=== PATIENT | female | born 2000 | race Caucasian/White ===

== ENCOUNTER 2023-06-22 09:29 | Emergency (ER) | payer OTHER ==
--- OUTSIDE RECORDS SUMMARY | 2023-06-22 09:47 | XMS REPORT | Continuity of Care Document ---
:2000 Author Organization [facility] t Address [address] [facility] [address] [place] [address] Care Team Providers Name Role Phone Estuardo Luna Primary Care Physician Olya Robles Attending Clinician Unavailable DEL TRAN Attending Clinician Unavailable ESTUARDO WINTER Attending Clinician Unavailable Estuardo Luna Attending Clinician [phone] DARSHANA MENEZES Attending Clinician Unavailable DARSHANA MENEZES Attending Clinician Unavailable Ultrasound, Ang-Mfm Attending Clinician Unavailable Darshana Menezes MD Attending Clinician Lab, Earl Attending Clinician Unavailable Gabriella Jacob RN Attending Clinician Unavailable Omar Parra RN Attending Clinician Unavailable 1, Pea-Kjm Us Room Attending Clinician Unavailable Kiki Randhawa MD Attending Clinician [phone] KIKI RANDHAWA Attending Clinician Unavailable Lab, Pea-Rmchp Attending Clinician Unavailable Jewell KENNEDY, Rosita [place] Attending Clinician ROSITA GARCIA Attending Clinician Unavailable Maverick Stoddard MD Attending Clinician Doctor Unassigned, Arpelar Attending Clinician Unavailable KNOW, DOES_NOT Attending Clinician Unavailable Imlance, Olya Neff Y Admitting Clinician Unavailable Payers Payer Name Policy Type Policy Number Effective Date Expiration Date Jc balderas [facility] [id number] 2022 00:00:00 Problems Condition Condition Condition Status Onset Resolution Last Treating Co mments Source Name Details Category Date Date Treatment Clinician Date Abnormal Abnormal Disease Active Overview: Un thanh maternal maternal 8-10 Formattin ity of glucose glucose 00:00: g of this [place] tolerance, tolerance, 00 note Me dical antepartum antepartum might be Branch different from the original. Passed 3hr gtt Short Short Disease Active Univers interval interval 4-05 ity of between between 00:00: [place] pregnancie pregnancie 00 Me dical s s Branch affecting affecting , , antepartum antepartum Multiparit Multiparit Disease Active U nivers y y 4-05 ity of 00:00: [place] 00 Medical Branch Supervisio Supervisio Disease Active U nivers n of n of 4-05 ity of high-risk [place] [facility] Allergies, Adverse Reactions, Alerts Allergy Allergy Status Severity Reaction(s) Onset Inactive Treating Comm ents Source Name Type Date Date Clinician BENADRYL DRUG Active Rash Univers COLD/FLU 4-05 ity of 00:00: [place] 00 [facility] Er Benadryl Propensi Active Rash Univer s Cold/Flu ty to 4-05 ity of adverse 00:00: [place] reaction 00 [facility] Branch diphenhy DA Active U SEIZURES [facility] dramine 6-28 [facility] [place] NO KNOWN Drug Active Univers ALLERGIE Class ity of S [facility] Social History Social Habit Start Date Stop Date Quantity Comments Source ASSERTION 2022-12-10 University of 00:00:00 [facility] Gender identity Universit y of [facility] Sexual orientation Univer sity [facility] [place] History of Social 2023-05-17 2023-05-17 Univers ity of function 00:00:00 00:00:00 [facility] Exposure to 2023-04-08 2023-04-18 Not sure [facility]-CoV-2 (event) 00:00:00 09:23:00 [facility] Tobacco use and 2023-01-25 2023-01-25 Smokeless Universit y of exposure 00:00:00 00:00:00 tobacco [facility] [place] Alcohol intake 2023-01-25 2023-01-25 Ex-drinker [facility] 00:00:00 00:00:00 (finding) [facility] Sex Assigned At [birth year] Universit y of 00:00:00 00:00:00 [facility] Smoking Status Start Date Stop Date Source Tobacco smoking consumption Univ [facility] Branch Never smoked tobacco [facility] Medications Ordered Filled Start Stop Current Ordering Indication Dosage Frequency Signature Comments Components Source Medication Medication Date Date Medication? Clinician (SIG) Name Name Yes [id number] 1{tbl} Take 1 U nivers multivitami 4-05 tablet by ity of n ( [place] 00 the Medical tablet morning. [place] Yes [id number] 1{tbl} Take 1 U nivers multivitami 4-05 tablet by ity of n ( [place] 00 the Medical tablet morning. [place] Yes [id number] 1{tbl} Take 1 U nivers multivitami 4-05 tablet by ity of n ( [place] 00 the Medical tablet morning. [place] Yes [id number] 1{tbl} Take 1 U nivers multivitami 4-05 tablet by ity of n ( [place] 00 the Medical tablet morning. [place] Yes [id number] 1{tbl} Take 1 U nivers multivitami 4-05 tablet by ity of n ( [place] 00 the Medical tablet morning. [place] Yes [id number] 1{tbl} Take 1 U nivers multivitami 4-05 tablet by ity of n ( [place] 00 the Medical tablet morning. [place] Yes [id number] 1{tbl} Take 1 U nivers multivitami 4-05 tablet by ity of n ( [place] 00 the Medical tablet morning. [place] Yes [id number] 1{tbl} Take 1 U nivers multivitami 4-05 tablet by ity of n ( [place] 00 the Medical tablet morning. [place] Yes [id number] 1{tbl} Take 1 U nivers multivitami 4-05 tablet by ity of n ( [place] 00 the Medical tablet morning. [place] Yes [id number] 1{tbl} Take 1 U nivers multivitami 4-05 tablet by ity of n ( [place] 00 the Medical tablet morning. [place] Yes [id number] 1{tbl} Take 1 U nivers multivitami 4-05 tablet by ity of n ( [place] 00 the Medical tablet morning. [place] Yes [id number] 1{tbl} Take 1 U nivers multivitami 4-05 tablet by ity of n ( [place] 00 the Medical tablet morning. [place] Yes [id number] 1{tbl} Take 1 U nivers multivitami 4-05 tablet by ity of n ( [place] 00 the Medical tablet morning. [place] Yes [id number] 1{tbl} Take 1 U nivers multivitami 4-05 tablet by ity of n ( [place] 00 the Medical tablet morning. [place] Yes [id number] 1{tbl} Take 1 U nivers multivitami 4-05 tablet by ity of n ( [place] 00 the Medical tablet morning. [place] Yes [id number] 1{tbl} Take 1 U nivers multivitami 4-05 tablet by ity of n ( [place]IT[place] 00 the Medical tablet morning. Branch Yes [id number] 1{tbl} Take 1 U nivers multivitami 4-05 tablet by ity of n ( [place] 00 the Medical tablet morning. Branch Yes [id number] 1{tbl} Take 1 U nivers multivitami 4-05 tablet by ity of n ( [place] 00 the Medical tablet morning. Branch Yes [id number] 1{tbl} Take 1 U nivers multivitami 4-05 tablet by ity of n ( [place] 00 the Medical tablet morning. [place] Yes [id number] 1{tbl} Take 1 U nivers multivitami 4-05 tablet by ity of n ( [place] 00 the Medical tablet morning. [place] Yes [id number] 1{tbl} Take 1 U nivers multivitami 4-05 tablet by ity of n ( [place] 00 the Medical tablet morning. [place] Yes [id number] 1{tbl} Take 1 U nivers multivitami 4-05 tablet by ity of n ( [place] 00 the Medical tablet morning. [place] Yes [id number] 1{tbl} Take 1 U nivers multivitami 4-05 tablet by ity of n ( [place] 00 the Medical tablet morning. Branch Yes [id number] 1{tbl} Take 1 U nivers multivitami 4-05 tablet by ity of n ( [place] 00 the Medical tablet morning. [place] Yes [id number] 1{tbl} Take 1 U nivers multivitami 4-05 tablet by ity of n ( [place] 00 the Medical tablet morning. [place] Yes [id number] 1{tbl} Take 1 U nivers multivitami 4-05 tablet by ity of n ( [place] 00 the Medical tablet morning. Branch Immunizations Ordered Filled Immunization Date Status Comments Sour e Immunization Name Name TDAP 2023-06-12 Completed University 00:00:00 [place] [facility] TDAP 2023-06-12 Completed University 00:00:00 [facility] TDAP 2023-06-12 Completed University 00:00:00 [facility] Vital Signs Vital Name Observation Time Observation Value Comments Source Systolic blood 2023-06-12 18:22:00 127 mm[Hg] Univer sity of pressure [facility] Branch Diastolic blood 2023-06-12 18:22:00 78 mm[Hg] Unive rsity of pressure [facility] Branch Heart rate 2023-06-12 18:22:00 98 /min Universi ty of [facility] Body temperature 2023-06-12 18:22:00 36.33 Tamika Univ ersity of [facility] Branch Respiratory rate 2023-06-12 18:22:00 17 /min Univ ersity of [facility] Body height 2023-06-12 18:22:00 167.6 cm Universi ty of [place] [facility] Body weight 2023-06-12 18:22:00 90.901 kg Universi ty [facility] [place] [facility] BMI 2023-06-12 18:22:00 32.35 kg/m2 Universi ty [facility] [place] [facility] Systolic blood 2023-05-31 19:54:00 119 mm[Hg] Univer sity of pressure [facility] Diastolic blood 2023-05-31 19:54:00 73 mm[Hg] Unive rsity of pressure [facility] Branch Heart rate 2023-05-31 19:54:00 90 /min Universi ty of [facility] Body temperature 2023-05-31 19:54:00 36.56 Tamika Univ ersity of [facility] Respiratory rate 2023-05-31 19:54:00 20 /min Univ ersity of [facility] Body height 2023-05-31 19:54:00 167.6 cm Universi ty of [place] [facility] Body weight 2023-05-31 19:54:00 89.54 kg Universi ty [facility] [place] [facility] BMI 2023-05-31 19:54:00 31.86 kg/m2 Universi ty of [facility] Systolic blood 2023-05-17 20:15:00 119 mm[Hg] Univer sity of pressure [place] [facility] Diastolic blood 2023-05-17 20:15:00 74 mm[Hg] Unive rsity of pressure [place] [facility] Heart rate 2023-05-17 20:15:00 95 /min Universi ty of [place] [facility] Body temperature 2023-05-17 20:15:00 36.17 Tamika Univ ersity of [place] [facility] Respiratory rate 2023-05-17 20:15:00 16 /min Univ ersity of [place] [facility] Body height 2023-05-17 20:15:00 167.6 cm Universi ty [facility] [place] [facility] Body weight 2023-05-17 20:15:00 88.587 kg Universi ty [facility] [place] [facility] BMI 2023-05-17 20:15:00 31.52 kg/m2 [facility]i ty [facility] [place] [facility] Systolic blood 2023-04-19 17:46:00 116 mm[Hg] Univer sity of pressure [place] [facility] Diastolic blood 2023-04-19 17:46:00 72 mm[Hg] Unive rsity of pressure [place] [facility] Heart rate 2023-04-19 17:46:00 106 /min Universi ty of [place] [facility] Body temperature 2023-04-19 17:46:00 36.17 Tamika Univ ersity of [place] [facility] Respiratory rate 2023-04-19 17:46:00 18 /min Univ ersity of [place] [facility] Body height 2023-04-19 17:46:00 167.6 cm Universi ty [facility] [place] [facility] Body weight 2023-04-19 17:46:00 83.19 kg [facility]i ty [facility] [place] [facility] BMI 2023-04-19 17:46:00 29.60 kg/m2 [facility]i ty [facility] [place] [facility] Systolic blood 2023-03-22 17:51:00 122 mm[Hg] Univer sity of pressure [place] [facility] Diastolic blood 2023-03-22 17:51:00 84 mm[Hg] Unive rsity of pressure [place] [facility] Heart rate 2023-03-22 17:51:00 86 /min Universi ty of [place] [facility] Body weight 2023-03-22 17:50:00 81.829 kg [facility]i ty [facility] [place] [facility] BMI 2023-03-22 17:50:00 29.12 kg/m2 [facility] [place] [facility] Body temperature 2023-03-22 17:50:00 35.78 Tamika Univ ersity of [place] [facility] Respiratory rate 2023-03-22 17:50:00 18 /min Univ ersity of [place] [facility] Body height 2023-03-22 17:50:00 167.6 cm Universi ty [facility] [place] [facility] Systolic blood 2023-02-22 19:57:00 130 mm[Hg] Univer sity of pressure [place] [facility] Diastolic blood 2023-02-22 19:57:00 84 mm[Hg] Unive rsity of pressure [place] [facility] Heart rate 2023-02-22 19:57:00 80 /min Universi ty of [place] [facility] Body temperature 2023-02-22 19:57:00 36.11 Tamika Univ ersity of [place] [facility] Respiratory rate 2023-02-22 19:57:00 18 /min Univ ersity of [place] [facility] Body height 2023-02-22 19:57:00 167.6 cm Universi ty [facility] [place] [facility] Body weight 2023-02-22 19:57:00 79.969 kg [facility]i ty [facility] [place] [facility] BMI 2023-02-22 19:57:00 28.46 kg/m2 [facility] [place] [facility] Systolic blood 2023-01-25 13:51:00 116 mm[Hg] Univer sity of pressure [place] [facility] Diastolic blood 2023-01-25 13:51:00 79 mm[Hg] Unive rsity of pressure [place] [facility] Heart rate 2023-01-25 13:51:00 86 /min Universi ty [facility] [place] [facility] Body temperature 2023-01-25 13:51:00 36.17 Tamika Univ ersity of [place] [facility] Respiratory rate 2023-01-25 13:51:00 18 /min Univ ersity of [place] [facility] Body height 2023-01-25 13:51:00 167.6 cm [facility] [place] [facility] Body weight 2023-01-25 13:51:00 79.833 kg [facility] [place] [facility] BMI 2023-01-25 13:51:00 28.41 kg/m2 [facility] [place] [facility] Procedures Procedure Date / Time Performed Performing Clinician Liv e SECOND AND THIRD 2023-06-13 20:54:00 Estuardo Winter [facility] TRIMESTER ULTRASOUND Medical [facility] nc TDAP VACCINE, >11 YRS, 2023-06-12 18:24:45 Estuardo Winter [facility] POCT URINALYSIS 2023-06-12 00:00:00 Estuardo Winter [facility] POCT URINALYSIS 2023-05-17 00:00:00 Estuardo Winter [facility] POCT URINALYSIS 2023-04-19 17:50:00 Estuardo Winter [facility] POCT URINALYSIS 2023-03-22 17:53:00 Estuardo Winter [facility] POCT URINALYSIS 2023-02-22 19:58:00 Estuardo Winter [facility] FIRST TRIMESTER 2023-02-20 15:02:00 Estuardo Winter [facility] POCT URINALYSIS W/O 2023-01-25 13:41:00 [facility]RAV[facility] POCT TEST 2023-01-25 13:40:00 Estuardo Winter [facility] ASSIGNMENT OF BENEFITS 2023-01-25 13:14:41 Doctor Unassigned, No [facility] hospital [id number] 2022-04-20 00:00:00 [facility] [id number] 2022-04-20 00:00:00 [facility] [id number] 2022-04-20 00:00:00 [facility] Encounters Start End Encounter Admission Attending Care Care Encounter Source Date/Time Date/Time Type Type Clinicians Facility Department ID 2022-05-01 Inpatient EL MargaretOlya [facility] LD [id number] [facility] 13:52:00 48 [facility] [place] [facility] 2022-04-20 Inpatient EM Margaret Olya NATANAEL OBPP [id number] [facility] 06:12:00 [id number] [facility] 2023-06-27 2023-06-27 Outpatient R MAGGY [facility] [id number] Univers 15:00:00 15:00:00 ESTUARDO vail [facility] 2023-06-14 2023-06-14 [facility] 1.2.840.114 [id number] Univers 00:00:00 00:00:00 Estuardo Casandra HYBRID CAR MECHANIC 350.1.13.10 ity of REGIONAL 4.2.7.2.686 Boogie as MATERNAL [id number] [facility] ical & CHILD [address] [place] [address] 2023-06-13 2023-06-13 Outpatient P DARSHANA MENEZES [facility] [id number] Univers 15:30:00 15:58:39 DARSHANA MENEZES [facility] [place] 2023-06-13 2023-06-13 Insurance Sales Professional [facility] 1.2 .840.114 [id number] Univers 15:30:00 15:58:39 Visit Darshana Menezes HYBRID CAR MECHANIC 350.1.13.10 ity of REGIONAL 4.2.7.2.686 Boogie as MATERNAL [id number] [facility] & CHILD [address] [facility] 2023-06-12 2023-06-12 [facility] [id number] Univers 13:00:00 13:45:29 ESTUARDO stephaniesharyn vinayak skylar [facility] 2023-06-12 2023-06-12 [facility] [id number] Univers 13:00:00 13:45:29 Estuardo C HYBRID CAR MECHANIC 350.1.13.10 ity of Visit REGIONAL 4.2.7.2.686 Boogie as MATERNAL [id number] [facility] & CHILD [address] [place] [address] 2023-06-09 2023-06-09 Outpatient R MAGGY [facility] [id number] Univers 08:30:00 08:56:32 ESTUARDO ity o f [facility] 2023-06-09 2023-06-09 Insurance Sales Professional [facility] 1.2.840. [id number] Univers 08:30:00 08:56:32 Visit AkinsiJosé Miguel vegasEstuardo C HYBRID CAR MECHANIC 350.1.13. 10 ity of REGIONAL 4.2.7.2.686 Boogie as MATERNAL [id number] [facility] & [address] 2023-06-01 2023-06-01 Telephone [facility] 1.2.840.114 [id number] Univers 00:00:00 00:00:00 Estuardo C HYBRID CAR MECHANIC 350.1.13.10 ity of REGIONAL 4.2.7.2.686 Boogie as MATERNAL [id number] [facility] & [address] 2023-05-31 2023-05-31 [facility] [id number] Univers 15:00:00 15:34:10 ESTUARDO ity o f [facility] 2023-05-31 2023-05-31 Routine [facility] 1.2.106.514 [id number] Univers 15:00:00 15:34:10 Estuardo C HYBRID CAR MECHANIC 350.1.13.10 ity of Visit [facility] 4.2.7.2.686 Boogie as MATERNAL [id number] [address] 2023-05-17 2023-05-17 [facility] [id number] Univers 15:00:00 15:32:30 ESTUARDO ity o f [facility] 2023-05-17 2023-05-17 Routine [facility] [id number] Univers 15:00:00 15:32:30 Estuardo C HYBRID CAR MECHANIC 350.1.13.10 ity of Visit REGIONAL 4.2.7.2.686 Boogie as MATERNAL [id number] [address] 2023-05-16 2023-05-16 Gabriella Diop 1.2.840.114 [id number] Univers 00:00:00 00:00:00 Triage MINI 350.1.13.10 it y of HOSPITAL 4.2.7.2.686 Boogie as [id number] [address] 2023-04-20 2023-04-20 Nurse DEL Parra 1.2.840.114 [id number] Univers 00:00:00 00:00:00 Triage Omar MORSE 350.1.13.10 it y of [facility] 4.2.7.2.686 Boogie as [id number] [address] 2023-04-19 2023-04-19 Routine [facility] 1.2.509.157 [id number] Univers 13:15:00 13:15:00 Estuardo C HYBRID CAR MECHANIC 350.1.13.10 ity of Visit REGIONAL 4.2.7.2.686 Boogie as MATERNAL [id number] [facility] & CHILD [address] [place] [address] 2023-04-19 2023-04-19 Outpatient [facility] [id number] Univers 13:15:00 13:09:57 ESTUARDO vail [facility] 2023-04-13 2023-04-13 Abstract [facility] 1.2.840.114 [id number] Univers 00:00:00 00:00:00 Estuardo C HYBRID CAR MECHANIC 350.1.13.10 ity of REGIONAL 4.2.7.2.686 Boogie as MATERNAL [id number] [facility] & CHILD [address] [place] [address] 2023-04-03 2023-04-03 Insurance Sales Professional 1, [facility] Room [facility] 1.2. 840.114 [id number] Univers 13:00:00 14:00:00 Visit Kiki Randhawa HYBRID CAR MECHANIC 350.1. 13.10 ity of REGIONAL 4.2.7.2.686 Boogie as MATERNAL [id number] Med ical & CHILD [address] [place] [address] 2023-04-03 2023-04-03 Outpatient P MARIA LUISA [facility] [id number] Univers 13:00:00 13:00:00 REMA it y of KIKI Greene [facility] 2023-03-22 2023-03-22 [facility] [id number] Univers 12:45:00 13:24:31 ESTUARDO vail [facility] 2023-03-22 2023-03-22 Routine Akinsipe, [facility] [id number] Univers 12:45:00 13:24:31 Estuardo C HYBRID CAR MECHANIC 350.1.13.10 ity of Visit REGIONAL 4.2.7.2.686 Boogie as MATERNAL [id number] [facility] & CHILD [address] [place] [address] 2023-02-22 2023-02-22 Outpatient R KRISTINPE, [facility] [id number] [facility] 14:30:00 15:55:21 ESTUARDO massey vinayak vail [facility] 2023-02-22 2023-02-22 Routine [facility] [id number] [id number] [facility] 14:30:00 14:45:00 Estuardo C HYBRID CAR MECHANIC 350.1.13.10 ity of Visit REGIONAL 4.2.7.2.686 Boogie as MATERNAL [id number] [facility] & [address] 2023-02-21 2023-02-21 Abstract Akinscionhealth, [facility] 1.2.840.114 [id number] Univers 00:00:00 00:00:00 Estuardo C HYBRID CAR MECHANIC 350.1.13.10 ity of REGIONAL 4.2.7.2.686 Boogie as MATERNAL [id number] [facility] & [address] 2023-02-20 2023-02-20 Insurance Sales Professional [facility], [facility] 1.2.840. 114 [id number] Univers 10:00:00 10:00:00 Visit Rosita Garcia HYBRID CAR MECHANIC 350.1.13.10 ity of REGIONAL 4.2.7.2.686 Boogie as MATERNAL [id number] [facility] & CHILD [address] [place] [address] 2023-02-20 2023-02-20 Outpatient Betina GARCIA [facility] [id number] Univers 10:00:00 09:48:19 ROSITA licea [facility] 2023-02-20 2023-02-20 Insurance Sales Professional 1, [facility] 1.2. 840.114 [id number] Univers 09:15:00 09:48:11 Visit RichiMaverick HYBRID CAR MECHANIC 350.1.13.10 ity of REGIONAL 4.2.7.2.686 Boogie as MATERNAL [id number] [facility] & CHILD [address] [facility] 2023-01-25 2023-01-25 Initial [facility] [id number] [id number] Univers 08:30:00 09:41:28 Estuardo Guajardo HYBRID CAR MECHANIC 350.1.13.10 ity of Visit [facility] 4.2.7.2.686 Boogie as MATERNAL [id number] [facility] & CHILD [address] [facility] 2023-01-25 2023-01-25 [facility] [id number] Univers 08:30:00 09:41:28 ESTUARDO licea f [facility] 2023-01-25 2023-01-25 Orders Doctor DEL 1.2.840.114 [id number] Univers 00:00:00 00:00:00 Only Unassigned, MINI 350.1.13.10 ity of Arpelar [facility] 4.2.7.2.686 Boogie as [id number] [address] 2022-06-15 2022-06-15 Outpatient KNOWJACKIE [facility] [id number] [facility] 13:54:00 13:54:00 DOES_NOT [facility] 2022-06-03 2022-06-03 Outpatient EL ImlanceOlya RADI [id number] [facility] 15:13:00 15:13:00 [facility] [place] 2022-04-20 2022-04-22 Inpatient EM ImlanceOlya OBPP [id number] [facility] 06:12:00 02:24:00 54 [facility] [place] 2022-04-19 2022-04-19 Emergency EM ImlanceOlya JACEK [id number] [facility] 19:27:00 21:27:00 00 [facility] Results Test Description Test Time Test Comments Results Result Comments Source POCT URINALYSIS W SPECIFIC GRAVITY 2023-06-12 18:25:00 Test Item Value Reference Range Interpretation Comme nts POCT U SP GRAV (test code = 3255) . 1.005-1.025 POCT PH U (test code = 3254) . 5-8 POCT U LEUK EST (test code = 3263) . Negative - Negative POCT U NIT (test code = 3262) . Negative - Negative POCT U PROT (test code = 3259) trace Negative - Negative POCT U GLU (test code = 3256) negative Negative - Negative POCT U KETONE (test code = 3258) . Negative - Negative POCT U UROBILI (test code = 3260) . 0.2-1 POCT U BILI (test code = 3261) . Negative - Negative POCT U BLD (test code = 3257) . Negative - Negative POCT U COLOR (test code = 3266) . POCT U APPEAR (test code = 3267) . [facility] URINALYSIS W SPECIFIC [id number] 20:18:00 Test Item Value Reference Range Interpretation Comments POCT U SP GRAV (test code = . 1.005-1.025 3255) POCT PH U (test code = 3254) . 5-8 POCT U LEUK EST (test code = . Negative - Negative 3263) POCT U NIT (test code = 3262) . Negative - Negative POCT U PROT (test code = 3259) trace Negative - Negative POCT U GLU (test code = 3256) negative Negative - Negative POCT U KETONE (test code = 3258) . Negative - Negative POCT U UROBILI (test code = . 0.2-1 3260) POCT U BILI (test code = 3261) . Negative - Negative POCT U BLD (test code = 3257) . Negative - Negative POCT U COLOR (test code = 3266) . POCT U APPEAR (test code = 3267) . [facility] URINALYSIS W SPECIFIC [id number] 20:18:00 Test Item Value Reference Range Interpretation Comments POCT U SP GRAV (test code = . 1.005-1.025 3255) POCT PH U (test code = 3254) . 5-8 POCT U LEUK EST (test code = . Negative - Negative 3263) POCT U NIT (test code = 3262) . Negative - Negative POCT U PROT (test code = 3259) trace Negative - Negative POCT U GLU (test code = 3256) negative Negative - Negative POCT U KETONE (test code = 3258) . Negative - Negative POCT U UROBILI (test code = . 0.2-1 3260) POCT U BILI (test code = 3261) . Negative - Negative POCT U BLD (test code = 3257) . Negative - Negative POCT U COLOR (test code = 3266) . POCT U APPEAR (test code = 3267) . [facility] URINALYSIS W SPECIFIC [id number] 17:50:00 Test Item Value Reference Range Interpretation Comments POCT U SP GRAV (test code = 3255) . 1.005-1.025 POCT PH U (test code = 3254) . 5-8 POCT U LEUK EST (test code = 3263) . Negative - Negative POCT U NIT (test code = 3262) . Negative - Negative POCT U PROT (test code = 3259) TRACE Negative - Negative POCT U GLU (test code = 3256) NEG Negative - Negative POCT U KETONE (test code = 3258) . Negative - Negative POCT U UROBILI (test code = 3260) . 0.2-1 POCT U BILI (test code = 3261) . Negative - Negative POCT U BLD (test code = 3257) . Negative - Negative POCT U COLOR (test code = 3266) . POCT U APPEAR (test code = 3267) .. [facility] URINALYSIS W SPECIFIC [id number] 17:54:00 Test Item Value Reference Range Interpretation Comments POCT U SP GRAV (test code = 3255) . 1.005-1.025 POCT PH U (test code = 3254) . 5-8 POCT U LEUK EST (test code = 3263) . Negative - Negative POCT U NIT (test code = 3262) . Negative - Negative POCT U PROT (test code = 3259) TRACE Negative - Negative POCT U GLU (test code = 3256) NEG Negative - Negative POCT U KETONE (test code = 3258) . Negative - Negative POCT U UROBILI (test code = 3260) . 0.2-1 POCT U BILI (test code = 3261) . Negative - Negative POCT U BLD (test code = 3257) . Negative - Negative POCT U COLOR (test code = 3266) . POCT U APPEAR (test code = 3267) . [facility] URINALYSIS W SPECIFIC [id number] 19:58:00 Test Item Value Reference Range Interpretation Comments POCT U SP GRAV (test code = 3255) . 1.005-1.025 POCT PH U (test code = 3254) . 5-8 POCT U LEUK EST (test code = 3263) . Negative - Negative POCT U NIT (test code = 3262) . Negative - Negative POCT U PROT (test code = 3259) trace Negative - Negative POCT U GLU (test code = 3256) neg Negative - Negative POCT U KETONE (test code = 3258) . Negative - Negative POCT U UROBILI (test code = 3260) . 0.2-1 POCT U BILI (test code = 3261) . Negative - Negative POCT U BLD (test code = 3257) . Negative - Negative POCT U COLOR (test code = 3266) . POCT U APPEAR (test code = 3267) . [facility] URINALYSIS W/O SPECIFIC [id number] 13:44:00 Test Item Value Reference Range Interpretation Comments POCT PH U (test code = 3254) 7 mg/dl 5-8 POCT U LEUK EST (test code = 2+ Negative - Negative 3) POCT U NIT (test code = 3262) neg Negative - Negative POCT U PROT (test code = 3259) trace Negative - Negative POCT U GLU (test code = 3256) neg Negative - Negative POCT U KETONE (test code = 3258) neg Negative - Negative POCT U BLD (test code = 3257) neg Negative - Negative [facility] [id number] 13:40:00 Test Item Value Reference Range Interpretation Comments POCT PREG (test code = 1605) Positive On board controls acceptable with C Yes Line (test code = 8667) POCT PREG LOT # (test code = 3579) POCT PREG TEST DATE (test code = 3576) [facility]- US TRANSVAGINAL [id number] 00:00:00 [facility] 2000 Sex: F Patient Name: NAYAN DENISE Unit No: [id number] EXAMS: CPT CODE: [id number] US TRANSVAGINAL W/PELVIS 88515 PROCEDURE INFORMATION: Exam: US Pelvis Complete (Transabdominal), Pelvis (Transvaginal), and US Duplex Artery or Vein (Ovaries) Limited Exam date and time: 06/03/2022 4:01 PM Age: 22 years old Clinical indication: Abdominal or pelvic symptoms: Protocol; Menstruation abnormalities; Other: Post bleeding; Additional info: Abnormal bleeding TECHNIQUE: Imaging protocol: Real-time transabdominal and transvaginal pelvic ultrasound (complete) with image documentation. Transvaginal imaging was used for better evaluation of the endometrium, adnexa, and/or cervix. Real-time duplex ultr asound scan of the arterial or venous flow of the ovaries with B-mode, color Doppler flow and spectral waveform analysis. Complete Pelvis, Limited Duplex. COMPARISON: No relevant prior studies available. FINDINGS: Uterus: The uterus measures 7.8 x 4.3 x 6.4 cm. The endometrial stripe measures 8 mm in width and is heterogeneous in appearance. Color Doppler evaluation demonstrates mild vascularity at the anterior and posterior aspects of the endometrium. Cervix: The cervix is unremarkable. Right ovary/adnexa: The right ovary is normal in echogenicity, measuring 2.8 x 1.3 x 2.2 cm. Doppler evaluation demonstrates ovarian arterial and venous flow. Left ovary/adnexa: The left ovary measures 3.9 x 1.8 x1.9 cm. There is a nonshadowing, nonvascular 6 mm echogenic focus of the left ovary. Doppler evaluation demonstrates ovarian and arterial and venous flow. Intraperitoneal space: No free fluid is seen. IMPRESSION: 1. Heterogeneous appearance of the endometrial stripe. The presence of endometrial vascularity suggest potential retained products of conception. 2. An indeterminate 6 mm echogenic focus of the left ovary, possibly a small dermoid cyst. 3. No Doppler evidence of ovarian torsion. at 0446 Reported and signed by: Manuel Kapoor MD CC: Olya Robles DO Technologist: Gogo Watts RDKS Probe: [id number] Trnscrbd D/ (044) GCD.CPS Orig Print D/T: S: 06/04/2022 (0446) [facility] NAME: NAYAN DENISE Radiology Department PHYS: Olya Mabry Y [address] : 2000 AGE: 22 SEX: F [place], [place] [address] LOC: Skylar.RAD PHONE #: [phone] EXAM DATE: 06/03 STATUS: DEP CLI FAX #: [phone] RAD NO: Page 1 Signed Report Patient Name: TEE DENISE Unit No: [id number] EXAMS: CPT CODE: [id number] US TRANSVAGINAL W/PELVIS 94300 (Continued) [facility] NAME: NAYAN DENISE Radiology Department PHYS: IMSULY RoblesOlyaAishwarya Y [address] : 2000 AGE: 22 SEX: F [place] [address] LOC: Skylar.RAD PHONE #: [phone] EXAM DATE: 06/03/2022 STATUS: DEP CLI FAX #: [phone] RAD NO: Page 2 Signed Report- DUP AB/PEL/SC/LTD 2022-06-04 00:00:00 [facility] : 2000 Sex: F Patient Name: NAYAN DENISE Unit No: [id number] EXAMS: CPT CODE: [id number] DUP AB/PEL/SC/LTD 84363 PROCEDURE INFORMATION: Exam: US Pelvis Complete (Transabdominal), Pelvis (Transvaginal), and US Duplex Artery or Vein (Ovaries) Limited Exam date and time: 06/03/2022 4:01 PM Age: 22 years old Clinical indication: Abdominal or pelvic symptoms: Protocol; Menstruation abnormalities; Other: Post bleeding; Additional info: Abnormal bleeding TECHNIQUE: Imaging protocol: Real-time transabdominal and transvaginal pelvic ultrasound (complete) with image documentation. Transvaginal imaging was used for better evaluation of the endometrium, adnexa, and/or cervix. Real-time duplex ultrasound scan of the arterial or venous flow of the ovaries with B-mode, color Doppler flow and spectral waveform analysis. Complete Pelvis, Limited Duplex. COMPARISON: No relevant prior studies available. FINDINGS: Uterus: The uterus measures 7.8 x 4.3 x 6.4 cm. The endometrial stripe measures 8 mm in width and is heterogeneous in appearance. Color Doppler evaluation demonstrates mild vascularity at the anterior and posterior aspects of the endometrium. Cervix: The cervix is unremarkable. Right ovary/adnexa:The right ovary is normal in echogenicity, measuring 2.8 x 1.3 x 2.2 cm. Doppler evaluation demonstrates ovarian arterial and venous flow. Left ovary/adnexa: The left ovary measures 3.9 x 1.8 x 1.9 cm.There is a nonshadowing, nonvascular 6 mm echogenic focus of the left ovary. Doppler evaluation demonstrates ovarian and arterial and venous flow. Intraperitoneal space: No free fluid is seen. IMPRESSION: 1. Heterogeneous appearance of the endometrial stripe. The presence of endometrial vascularity suggest potential retained products of conception. 2. An indeterminate 6 mm echogenic focus of the leftovary, possibly a small dermoid cyst. 3. No Doppler evidence of ovarian torsion. at 0446 Reported and signed by: Manuel Kapoor MD CC: Olya Robles DO Technologist: Gogo Watts RDMS Probe: Trnscrbd D/ (0446) GCD.CPSOrig Print D/T: S: 06/04/2022 (0446) [facility] NAME: NAYAN DENISE Radiology Department PHYS: [facility] MargaretOlya [address] : 2000 AGE: 22 SEX: F [place] [address] LOC: .RAD PHONE #: [phone] EXAM DATE: 06/03/2022 STATUS: DEP CLI FAX #: [phone] RAD NO: Page 1 Signed Report Patient Name: NAYAN DENISE Unit No: [id number] EXAMS: CPT CODE: [id number] DUP AB/PEL/SC/LTD 96273 (Continued) [facility] NAME: NAYAN DENISE [facility] [address] : 2000 AGE: 22 SEX: F [place], [place] [address] LOC: .RAD PHONE #: [phone] EXAM DATE: 06/03/2022 STATUS: DEP CLI FAX #: [phone] RAD NO: Page 2 Signed Report- US PELVIS COMPLETE 2022-06-04 00:00:00 [facility] : 2000 Sex: F Patient Name: NAYAN DENISE Unit No: [id number] EXAMS: CPT CODE: [id number] US PELVIS COMPLETE 47028 PROCEDURE INFORMATION: Exam: US Pelvis Complete (Transabdominal), Pelvis (Transvaginal),and US Duplex Artery or Vein (Ovaries) Limited Exam date and time: 06/03/2022 4:01 PM Age: 22 years old Clinical indication: Abdominal or pelvic symptoms: Protocol; Menstruation abnormalities; Other: Post bleeding; Additional info: Abnormal bleeding TECHNIQUE: Imaging protocol: Real- time transabdominal and transvaginal pelvic ultrasound (complete) with image documentation. Transvaginal imaging was used for better evaluation of the endometrium, adnexa, and/or cervix. Real-time duplex ultrasoundscan of the arterial or venous flow of the ovaries with B-mode, color Doppler flow and spectral waveform analysis. Complete Pelvis, Limited Duplex. COMPARISON: No relevant prior studies available. FINDINGS: Uterus: The uterus measures 7.8 x 4.3 x 6.4 cm. The endometrial stripe measures 8 mm in width and is heterogeneous in appearance. Color Doppler evaluation demonstrates mild vascularity at the anterior and posterior aspects of the endometrium. Cervix: The cervix is unremarkable. Right ovary/adnexa: The right ovary is normal in echogenicity, measuring 2.8 x 1.3 x 2.2 cm. Doppler evaluation demonstrates ovarian arterial and venous flow. Left ovary/adnexa: The left ovary measures 3.9 x 1.8 x 1.9 cm. There is a nonshadowing, nonvascular 6 mm echogenic focus of the left ovary. Doppler evaluation demonstrates ovarian and arterial and venous flow. Intraperitoneal space: No free fluid is seen. IMPRESSION: 1. Heterogeneous appearance of the endometrial stripe. The presence of endometrial vascularity booth ggest potential retained products of conception. 2. An indeterminate 6 mm echogenic focus of the left ovary, possibly a small dermoid cyst. 3. No Doppler evidence of ovarian torsion. ElectronicallySigned by Manuel Kapoor MD on 06/04/2022 at 0446 Reported and signed by: Manuel Kapoor MD CC: Yoana Robles DO Technologist: Gogo Watts RDMS Probe: Trnscrbd D/ (0446) GCD.CPSOrig Print D/T: S: 06/04/2022 (0446) [facility] NAME: NAYAN DENISE [facility] [address] : 2000 AGE: 22 SEX: F [place] [address] LOC: CatherineRAD PHONE #: [phone] EXAM DATE: 06/03/2022 STATUS: DEP CLI FAX #: [phone] RAD NO: Page 1 Signed Report Patient Name: NAYAN DENISE Unit No: [id number] EXAMS: CPT CODE: [id number] US PELVIS COMPLETE 84636 (Continued) [facility] NAME: NAYAN DENISE Radiology Department PHYS: [facility] Olya Hardy Y [address] : 2000 AGE: 22 SEX: F [place], [place] [address] LOC: F.RAD PHONE #: [phone] EXAM DATE: 06/03/2022 STATUS: DEP CLI FAX #: [phone] RAD NO: Page 2 Signed ReportCBC W/AUTO [id number] 09:54:00 Test Item Value Reference Range Interpretation Comments WHITE BLOOD CELL (test code = WBC) 11.2 K/mm3 6.5-12.3 N RED BLOOD CELL (test code = RBC) 3.38 M/mm3 3.51-4.69 L HEMOGLOBIN (test code = HGB) 10.6 g/dL 10.1-13.8 N HEMATOCRIT (test code = HCT) 31.1 % 32.5-41.8 L MEAN CELL VOLUME (test code = MCV) 92.0 fL 84.6-96.6 N MEAN CELL HGB (test code = MCH) 31.4 pg 27.3-33.9 N MEAN CELL HGB CONCETRATION (test 34.1 gm/dL 32.0-34.2 N code = MCHC) RED CELL DISTRIBUTION WIDTH (test 13.3 % 12.2-16.3 N code = RDW) PLATELET COUNT (test code = PLT) 193 K/mm3 134-363 N MEAN PLATELET VOLUME (test code = 10.7 fL 9.2-12.7 N MPV) NEUTROPHIL % (test code = NT%) 70.6 % 57.9-77.3 N LYMPHOCYTE % (test code = LY%) 16.7 % 14.5-29.7 N MONOCYTE % (test code = MO%) 10.2 % 3.6-10.2 N EOSINOPHIL % (test code = EO%) 1.8 % 0.0-3.0 N BASOPHIL % (test code = BA%) 0.3 % 0.1-0.9 N NEUTROPHIL # (test code = NT#) 7.9 K/mm3 LYMPHOCYTE # (test code = LY#) 1.9 K/mm3 MONOCYTE # (test code = MO#) 1.1 K/mm3 EOSINOPHIL # (test code = EO#) 0.20 K/mm3 BASOPHIL # (test code = BA#) 0.0 K/mm3 RBC MORPHOLOGY REQUIRED (test code NORMAL NORMAL = RBCM) PLATELET MORPHOLOGY REQUIRED (test NORMAL NORMAL code = PLTMR) AG HEPATITIS B [id number] 08:09:00 Test Item Value Reference Range Interpretation Comments AG HEPATITIS B SURFACE (test code NONREACTIVE NONREACTIVE = HBSAG) AB HEPATITIS C [id number] 08:09:00 Test Item Value Reference Range Interpretation Comments AB HEPATITIS C (test code = NONREACTIVE NONREACTIVE HCVAB) SIGNAL TO CUTOFF (test code = 0.15 <0.80 N CUTOFF) AB [id number] 08:09:00 Test Item Value Reference Range Interpretation Comments AB TREPONEMA (test code = TREPAB) NONREACTIVE NONREACTIVE AB HIV 1 08:09:00 Test Item Value Reference Range Interpretation Comments AB HIV 1 2 (test NONREACTIVE NONREACTIVE Done by [facility] code = [id number]) 4th Gen HIV Ag/Ab Combo Screen COVID 19 Asymptomatic IH [id number] 07:18:00 Test Item Value Reference Range Interpretation Comments COVID 19 Asymptomatic POSITIVE NEGATIVE A RESUL TS CALLED TO AG (test code = LUISITO BREAD BACK & COVNONPUIAG) CONFIRMED? YESB Y F.LAB.ELB1 03/24 07/14 0718This test h as been authorized only for the detection ofpro teins from SARS-CoV-2 , not for any other virus es orpathogens. Ne gative results should be treated as pres umptive andconfirmed wi th a molecular assay , if necessary for patientmanageme nt. Negative result s do not rule out COVID- 19 andshould not b e used as the sole basis for treatment orpat ient management deci sions, including infec tion controldecision s. Negative result s should be considered i n thecontext of a patient's recen t exposures, hist ory and thepresence of clinical signs and sympt oms consistent with COVID-19. This test has n ot been FDA cleared or approved; the test hasbee n authorized by [employer] under an Emergency Us e Authorization(E UA) for use by laborato sallie certified under the CLIA thatmeet the requirements to perform moderate, high or waivedcomplexit y tests. This test is au thorized for use at the oint of Care (POC), i.e ., in patient care settingsoperati ng under a CLIA Certific ate of Waiver, Certifi katie ofCompliance, o r Certificate of Accreditation. This test is only authori zed for the duration of thedeclaration that circumstances e xist justifying theauthorizatio n of emergency use o f in vitro diagnosti c testsfor detect ion and/or diagnosi s of COVID-19 under Avajnux294(b)(1 ) of the Act, 21 U.S.C. 360bbb-3(b)(1), unless theauthorizatio n is terminated or r evoked sooner. CBC W/AUTO [id number] 07:08:00 Test Item Value Reference Range Interpretation Comments WHITE BLOOD CELL (test code = WBC) 8.9 K/mm3 6.5-12.3 N RED BLOOD CELL (test code = RBC) 4.25 M/mm3 3.51-4.69 N HEMOGLOBIN (test code = HGB) 13.2 g/dL 10.1-13.8 N HEMATOCRIT (test code = HCT) 38.0 % 32.5-41.8 N MEAN CELL VOLUME (test code = MCV) 89.4 fL 84.6-96.6 N MEAN CELL HGB (test code = MCH) 31.1 pg 27.3-33.9 N MEAN CELL HGB CONCETRATION (test 34.7 gm/dL 32.0-34.2 H code = MCHC) RED CELL DISTRIBUTION WIDTH (test 13.0 % 12.2-16.3 N code = RDW) PLATELET COUNT (test code = PLT) 252 K/mm3 134-363 N MEAN PLATELET VOLUME (test code = 10.8 fL 9.2-12.7 N MPV) NEUTROPHIL % (test code = NT%) 69.5 % 57.9-77.3 N LYMPHOCYTE % (test code = LY%) 16.8 % 14.5-29.7 N MONOCYTE % (test code = MO%) 10.9 % 3.6-10.2 H EOSINOPHIL % (test code = EO%) 2.1 % 0.0-3.0 N BASOPHIL % (test code = BA%) 0.3 % 0.1-0.9 N NEUTROPHIL # (test code = NT#) 6.2 K/mm3 LYMPHOCYTE # (test code = LY#) 1.5 K/mm3 MONOCYTE # (test code = MO#) 1.0 K/mm3 EOSINOPHIL # (test code = EO#) 0.19 K/mm3 BASOPHIL # (test code = BA#) 0.0 K/mm3 RBC MORPHOLOGY REQUIRED (test code NORMAL NORMAL = RBCM) PLATELET MORPHOLOGY REQUIRED (test NORMAL NORMAL code = PLTMR) RUPTURE OF [id number] 20:32:00 Test Item Value Reference Range Interpretation Comments RUPTURE OF MEMBRANES (test code NON-RUPTURED = ROM) Notes Date/Time Note Provider Source 2023-06-01 14:21:24-00:00 Formatting of this note migh t be different from the original. [facility] Pt informed of elevated 1 hr gtt results, scheduled for 3 hr gtt, fasting instructions reviewed with pt, verbalized understanding. Pt will call back for appointment. Aleta Kate RN 06/01/23 2:21 PM 2023-06-01 14:04:08-00:00 Formatting of this note migh t be different from the original. [facility] Please notify the patient sh claude failed her 1 hr gtt. She needs to come in for a fasting 3hr gtt AMIRA Lopez 06/01/2023 2:04 PM 2023-05-16 19:44:00-00:00 Formatting of this note migh t be different from the original. Gabriella Jacob RN [facility] Regardin wks - chest congestion, s ore throat x 1 day ----- Message from Sarah Leigh sent at 05/16 7:40 PM CDT ----- Nayan Denise is a 23 year old female Electronically signed by Gabriella Jacob RN at 04/23 7:44 PM CDT 2023-05-16 19:44:00-00:00 Formatting of this note migh t be different from the original. [facility] Triage Assessment Last Clinic Visit: 04/19/2023 Routine vi sit Primary Symptom: chest congestion Onset / Duration: yesterday, worsening today Location / Description: chest congestion Pain / Severity: 5/10 Associated Symptoms: sore throat Fever / Method: denies Hydration: 4-5 bottles; last void 1 hour ago Treatment so far: none Effect on ADL's: unsure what she can take Gestational Weeks: 24w3d Rupture Membranes: denies Bleeding / Spotting / Pads per hour: denies Movement: 10 minutes ago Para / : EDC: 09/02/2023 Pre-existing condition / Imm unocompromised: short interval between pregnancies affecting , antepartum; multiparity; supervision of high-risk Advice given per Medication Questions Call Adult Protocol. RN discussed with patient approved medications during . RN will send copy of list to patient via [employer]. Patient voices understanding and denies further needs at this time. Reason for Disposition Caller has medication quest ion, adult has minor symptoms, caller declines triage, AND triager answers question Protocols used: Medication Question [id number]-[id number] H Electronically signed by Gabriella Jacob RN at 04/23 8:05 PM CDT 2022-04-21 17:04:00-00:00 [facility] OB Disch REPORT#:[id number] REPORT STATUS: Signed DATE:04/21/22 TIME: 1703 PATIENT: NAYAN DENISE UNIT #: [id number] ROOM/BED: [address] : [birth year] AGE: 22 SEX: F ATTEND: Olya Robles DO ADM AUTHOR: Olya Robles DO * ALL edits or amendments must be made on the [employer] document * Subjective Subjective Admission EGA: Weeks: 38 Days: 3 EGA at delivery (wks/days): 38 weeks (38.3) Status/day: post (day 1) Comments: Patient seen and examined at bedside. Reports sh e is feeling well. Denies any significant pain and reports lochia is d ecreasing. She is tolerating a regular diet, voiding, and ambulating without di zziness or lightheadedness. Denies CP, SOB, fever, chills, n/v, [place], vision changes. She has been formula feeding her baby. States her breasts are sore so she does not think she is going to breast feed. Continues to remain asymptomatic from COVI D-19. Objective General VS: Vital Signs Date Temp Pulse Resp B/P B/P Mean Pulse Ox FiO2 04/20-04/21 98.2-98.9 88-99 18-20 126-149/69-82 93.0-108.0 99 Last Documented: Result Date Time B/P 126/77 04/21 0426 Temp 98.9 04/21 0426 Pulse 88 04/21 0426 Resp 18 04/21 0426 Pulse Ox 99 04/21 0030 B/P Mean 93.0 04/20 1836 PATIENT WEIGHT: Weight (lb): Weight (oz): Weight (kg): [id number] Physical Exam Abdomen: post gravid, soft, no abnormal tenderne ss, no guarding, no rebound tenderness Uterus: involution appropriate, non-tender Fundus: firm, below the umbilicus, non-tender Results Findings/Data: Laboratory Tests: 04/21 04/20 04/20 0844 0620 0610 Hematology WBC (6.5 - 12.3 K/mm3) 11.2 8.9 RBC (3.51 - 4.69 M/mm3) 3.38 L 4.25 Hgb (10.1 - 13.8 g/dL) 10.6 13.2 Hct (32.5 - 41.8 %) 31.1 L 38.0 MCV (84.6 - 96.6 fL) 92.0 89.4 MCH (27.3 - 33.9 pg) 31.4 31.1 MCHC (32.0 - 34.2 gm/dL) 34.1 34.7 H RDW (12.2 - 16.3 %) 13.3 13.0 Plt Count (134 - 363 K/mm3) 193 252 MPV (9.2 - 12.7 fL) 10.7 10.8 Neut % (Auto) (57.9 - 77.3 %) 70.6 69.5 Lymph % (Auto) (14.5 - 29.7 %) 16.7 16.8 [place] % (Auto) (3.6 - 10.2 %) 10.2 10.9 H Eos % (Auto) (0.0 - 3.0 %) 1.8 2.1 Baso % (Auto) (0.1 - 0.9 %) 0.3 0.3 Neut # (Auto) (K/mm3) 7.9 6.2 Lymph # (Auto) (K/mm3) 1.9 1.5 [place] # (Auto) (K/mm3) 1.1 1.0 Eos # (Auto) (K/mm3) 0.20 0.19 Baso # (Auto) (K/mm3) 0.0 0.0 Serology Treponema pallidum Ab (NONREACTIVE) NONREACTIVE Hep Bs Antigen (NONREACTIVE) NONREACTIVE Hepatitis C Antibody (NONREACTIVE) NONREACTIVE Hep C Ab Signal/Cutoff (<0.80) 0.15 HIV 1 2 Antibody (NONREACTIVE) NONREACTIVE SARS-CoV-2 Ag (Rapid) (NEGATIVE) POSITIVE *A Discharge Summary General Problem List/A P: 1. (spontaneous vaginal delivery) 2. COVID-19 3. History of chlamydia Free Text A P: 22 yo PPD#1 s/p at 38.3 weeks - Routine /post op care - s/p consult. Pt does not think she w ants to breastfeed anymore - pt with labile BPs around time of delivery. BPs normal since 2 hrs - Discharge to home today if baby is discharged COVID-19 positive - Tested positive on routine screening - Asymptomatic Hx of Chlamydia in early - Negative test of cure 03/10/22 Assessment: nml progress Date of admission: Date of admission: 04/20/22 Admission diagnosis: GBS status (positive), labo r-spontaneous, labor-term Hospital course: spontaneous labor, spontaneous vag delivery, epidural anesthesia, nml postop/postpart care Procedures: epidural anesthesia, spontaneous vag inal deliv Discharge condition: stable Discharge to: Home/Self Care Discharge diagnosis: full-term uncomp delivery Baby A: Vaginal delivery: spontaneous status: live born Gender: male ("Luis Felipe") 1 minute: 8 5 minutes: 9 Vaginal packing at delivery: No Discharge Instructions Diet: Regular Activity: Resume Normal Activity, As Tolerated, No [place] for 6 Wks Additional discharge routines: Attending Follow- Up Discharge meds: Continue taking these medications: PNV/FE FUM/FA ( MULTIVITAMIN) 28 MG IRON -800 MCG TAB 1 TABLET ORAL DAILY. Start taking the following new medications: ACETAMINOPHEN (TYLENOL) 500 MG TAB 500 MILLIGRAM ORAL EVERY 4 HOURS NEEDED. as needed for PAIN SCALE 1-3 ( USE 1ST) Qty = 30 No Refills IBUPROFEN (MOTRIN) 600 MG TAB 600 MILLIGRAM ORAL EVERY 6 HOURS NEEDED. as needed for PAIN SCALE 1-3 ( USE 2ND) Qty = 30 No Refills DOCUSATE SODIUM (COLACE) 100 MG CAP 200 MILLIGRAM ORAL BEDTIME. Qty = 30 No Refills at 1713 RPT #:[id number] END OF REPORT 2022-04-20 15:39:00-00:00 [facility]) OB Delivery Note REPORT#:[id number] REPORT STATUS: Signed DATE:04/20/22 TIME: 153 PATIENT: NAYAN DENISE UNIT #: [id number] ROOM/BED: [address] : 02 AGE: 22 SEX: F ATTEND: Olya Robles DO ADM AUTHOR: Olya Robles DO * ALL edits or amendments must be made on the JAZIO/computer document * OB Delivery Pre-delivery GBS status: GBS status: positive Prophylaxis administered: penicillin evaluation at delivery: NRP certified pe rsonnel Admission EGA: Weeks: 38 Days: 3 EGA at delivery (wks/days): 38 weeks (38.3) Blood Loss/Details Blood loss at delivery: <1K: no sx hypovol=no he m, no more than expected EBL at delivery (ml's): 300 Baby A Information Baby A information Delivery date: 04/20/22 Delivery time: 1508 status: live born Wt of baby (grams): 4070 Wt of baby (lbs/oz): 8lbs, 15.57oz Gender: male ("Luis Felipe") 1 minute: 8 5 minutes: 9 Presentation: vertex ABG details Baby A Cord blood gases: not collected Nuchal cord Baby A Nuchal cord: yes (loose and reduced) Vaginal Delivery Vaginal Delivery Vaginal delivery: Labor: spontaneous Vaginal delivery: spontaneous Amniotic fluid: meconium Anesthesia type: epidural anesthesia Laceration repair: 3-0 suture (vicryl) Placenta: spontaneous, intact Post delivery meds used: oxytocin Count: correct, vag exam neg for sponges Vaginal packing: No Mother's condition: mother stable 's condition: stable in room Lacerations: Perineal laceration(s): 1st Degree w/labia/skin Additional comments: Patient pushed under epidural anesthesia with co ntractions to deliver a live male . head delivered HITESH. N uchal x 1 noted and reduced with ease. Left anterior shoulder delivered with ease follo wed by the right posterior shoulder and the rest of the body spontaneously. Infant was placed skin to skin on mother's chest and sponta neously cried. Mouth and nares were bulb suctioned. After over 1 minute, cord was clamped and cut by the father of the baby. Cord blood collected. Placenta delivered spon taneously, intact, and with a 3 vessel cord. Vulva, vagina and perineum were in spected. First degree laceration noted on the left and was repaired in the usual fashio n with 3-0 vicryl. A labial laceration was noted on the right and closed in a running, non locked fashion with 3-0 vicryl. Hemostasis was noted. Needle, s ponge and instrument count correct. Mother and baby stable. at 1807 RPT #:[id number] END OF REPORT 2022-04-20 14:41:00-00:00 [facility] OB Intrapart Prog Note REPORT#:[id number] REPORT STATUS: Signed DATE:04/20/22 TIME: 1441 PATIENT: NAYAN DENISE UNIT #: [id number] ROOM/BED: [address] : 02 AGE: 22 SEX: F ATTEND: Olya Robles DO ADM AUTHOR: Olya Robles DO * ALL edits or amendments must be made on the el [employer]/computer document * Subjective Subjective Admission EGA: Weeks: 38 Days: 5 Current EGA: Current EGA(wks): 38 Current EGA(days): 5 Comments: Pt comfortable with epidural Objective Nursing Documentation Review Nursing data: ROM date: 04/20/22 ROM time: 0400 General VS: Last Documented: Result Date Time B/P Mean 89.0 04/20 1354 B/P 123/65 04/20 1354 Pulse 83 04/20 1354 Temp 98.6 04/20 1208 Resp 20 04/20 1208 Vital Signs Date Temp Pulse Resp B/P B/P Mean Pulse Ox FiO2 04/20 98.2-98.6 75-131 20 91-158/54-79 75.0-99. 0 PATIENT WEIGHT: Weight (lb): Weight (oz): Weight (kg): 68.295846 Objective Cervical/ exam: Dilatation (cm): 10 - complete (per nursing 060 0) Effacement (%): 100 station: + 2 presentation: cephalic Uterine activity: Monitor: toco Frequency (description): regular Frequency (minutes): 2 Duration (seconds): 50 FHR Evaluation Baby A: Baby A baseline: 140 bpm Baby A variability: moderate 6-25 bpm Baby A accelerations: 15 X 15 Baby A decelerations: none Diagnosis, Assessment Plan Problem List/A P: 1. Spontaneous rupture of membranes 2. 38 weeks gestation of 3. COVID-19 4. History of chlamydia Free Text A P: 22 yo at 38.3 weeks - s/p SROM 0400, meconium - GBS positive. S/p 2 doses of PCN - Epidural for pain control, in place - Pt 10/100/+1. No augmentation needed. Blanco just removed. Will start pushing - Anticipate vaginal delivery at 1759 RPT #:[id number] END OF REPORT 2022-04-20 06:49:00-00:00 [facility] ([facility]) OB Admission / H P REPORT#:[id number] REPORT STATUS: Signed DATE:04/20/22 TIME: 648 PATIENT: NAYAN DENISE UNIT #: [id number] [facility] AGE: 22 SEX: F ATTEND: Olya Robles DO ADM AUTHOR: Olya Robles * ALL edits or amendments must be made on the el [employer]aw[employer]/computer document * OB History Nursing Documentation Review Nursing data: ROM date: 04/20/22 ROM time: 040 Chief complaint: suspected ruptured memb HPI: 22 yo at 38.3 weeks ges tation, MARYANNE 05/01/22, presents for SROM at 0400 with associated contractions. Rep orts fluid was clear initially but is now meconium. Feeling movement. Jose es vaginal bleeding. Pt incidentally tested positive for COVID-19 on routine screening upon admission . Denies any sick contacts. Denies any CP, SOB, fever, chills, n/v, upper re spiratory symptoms. history: : 1 Term: 0 : 0 Abortus: 0 Living children: 0 Current : Best EDC: 05/01/22 Admission EGA (weeks) 38 Admission EGA (days) 3 EDC based on: LMP, ultrasound, 1st trimester (8 wk) Conditions of : STI (chlamydia, LUIS neg ) Labs: Blood type: A Rh: positive Rubella: immune Hepatitis B: negative HIV: negative STD: negative (LUIS chlamydia neg) Syphilis: currently negative GBS: positive Genetic testing: NIPT low risk male, genetic car rier screening for CF, SMA, Fragile X, DMD negative Past History Additional Medical History: Denies Additional Surgical History: Denies Family History Reports: Cancer, Diabetes, Hypertension. Alcohol Use Denies EtOH use Drug Use Denies recreational drugs Smoking status: Smoking status for patients 13 years old or old er: Never Smoker Medications: Home Medications: PNV/FE FUM/FA ( MULTIVITAMIN) 1 TAB PO D AILY Allergies: Coded Allergies: diphenhydramine (From BENADRYL) (SEIZURES ) Review of Systems All systems rev neg: except as marked Objective General VS: Vital Signs: Date Time Temp Pulse Resp B/P B/P Pulse O2 O2 F low FiO2 Mean Ox Delivery Rate 04/20 0758 80.0 04/20 0758 131 91/75 04/20 0753 80.0 04/20 0753 93 109/58 04/20 0747 88.0 04/20 0747 105 118/70 04/20 0742 93.0 04/20 0742 90 122/74 04/20 0739 94.0 04/20 0739 88 123/75 04/20 0733 90.0 04/20 0733 98 122/69 04/20 0727 93.0 04/20 0727 94 126/70 04/20 0722 99.0 04/20 0722 90 134/76 PATIENT WEIGHT: Weight (lb): Weight (oz): Weight (kg): 68.482249 Physical Exam HEENT: normocephalic w/o injury Cardiac: regular rate and rhythm Lungs: clear to auscultation Abdomen: gravid, soft, no abnormal tenderness, n o guarding Uterine activity: Monitor: toco Frequency (description): regular Frequency (minutes): 2 Duration (seconds): 50 Pelvic exam: Pelvis clinically adequate: yes, inlet appears appropriate Cervical/ exam: Dilatation (cm): 4 (per nursing 0600) Effacement (%): 70 station: - 3 presentation: cephalic Lower extremities: Edema: none Calf tenderness: negative Baby A: Baby A baseline: 140 bpm Baby A variability: moderate 6-25 bpm Baby A accelerations: 15 X 15 Baby A decelerations: none Results Findings/Data: Laboratory Tests: 04/20 04/20 0620 0610 Hematology WBC (6.5 - 12.3 K/mm3) 8.9 RBC (3.51 - 4.69 M/mm3) 4.25 Hgb (10.1 - 13.8 g/dL) 13.2 Hct (32.5 - 41.8 %) 38.0 MCV (84.6 - 96.6 fL) 89.4 MCH (27.3 - 33.9 pg) 31.1 MCHC (32.0 - 34.2 gm/dL) 34.7 H RDW (12.2 - 16.3 %) 13.0 Plt Count (134 - 363 K/mm3) 252 MPV (9.2 - 12.7 fL) 10.8 Neut % (Auto) (57.9 - 77.3 %) 69.5 Lymph % (Auto) (14.5 - 29.7 %) 16.8 [place] % (Auto) (3.6 - 10.2 %) 10.9 H Eos % (Auto) (0.0 - 3.0 %) 2.1 Baso % (Auto) (0.1 - 0.9 %) 0.3 Neut # (Auto) (K/mm3) 6.2 Lymph # (Auto) (K/mm3) 1.5 [place] # (Auto) (K/mm3) 1.0 Eos # (Auto) (K/mm3) 0.19 Baso # (Auto) (K/mm3) 0.0 Serology Treponema pallidum Ab (NONREACTIVE) NONREACTIVE Hep Bs Antigen (NONREACTIVE) NONREACTIVE Hepatitis C Antibody (NONREACTIVE) NONREACTIVE Hep C Ab Signal/Cutoff (<0.80) 0.15 HIV 1 2 Antibody (NONREACTIVE) NONREACTIVE SARS-CoV-2 Ag (Rapid) (NEGATIVE) POSITIVE *A Diagnosis, Assessment Plan Diagnosis, Assessment Plan Problem List/A P: 1. Spontaneous rupture of membranes 2. 38 weeks gestation of 3. COVID-19 4. History of chlamydia Free Text A P: 22 yo at 38.3 weeks - s/p SROM 0400, meconium - GBS positive. S/p PCN 5 million units. Continu e q 4 hours - Epidural for pain control, now in place - Kelvin regularly. SVE 70/-3 at 0600 --> /-1 at 0740 per nursing. > If ctx space out or pt does not make cervical change, will augment with pitocin. COVID-19 positive - Tested positive on routine screening - Asymptomatic Hx of Chlamydia in early - Negative test of cure 03/10/22 at 7632 RPT #:[id number] END OF REPORT
[2023-06-22] MEDS ORDERED: NA CHLORIDE 0.9% 1,000 ML ONE ×2 (10:25→11:19)
[2023-06-22] MEDS ORDERED: ONDANSETRON 4 MG/2 ML VIAL ONE (10:25)
[2023-06-22 10:30] LABS: SARS-CoV-2 Antigen Rapid Res Negative (Negative)
[2023-06-22 10:38] LABS: Absolute Lymphocytes (CBC) 0.5 K/uL (0.7-4.9); Hematocrit 36.6 % (36.0-45.0); Lymphocytes % 4.8 % (15.3-44.8); MCV 89.1 fL (80-100); MPV 7.7 fL (7.6-11.3); Platelets 228 thou/uL (152-406)
[2023-06-22 10:53] LABS: Potassium 3.5 mEq/L (3.5-5.1)
--- NOTE | 2023-06-22 11:42 | EDPHYS ---
Physician Documentation [facility] Name: Georgia Denise Age: 23 yrs Sex: Female : 2000 Arrival Date: 06/22/2023 Time: 09:29 Bed 2 Private MD: ED Physician Naveed Sanchez HPI: 06/22 09:50 This 23 yrs old Female presents to ER via Ambulatory with complaints of Vomiting. 7 09:50 The patient presents to the emergency department with nausea, vomiting. Onset: The jh7 symptoms/episode began/occurred yesterday. Possible causes: sick contacts, by family, son. Associated signs and symptoms: Pertinent negatives: diarrhea, fever. Patient reports being unable to hold anything down since yesterday. Her son has exhibited similar symptoms. She is 30 weeks .. Historical: - Allergies: 09:52 Benadryl; ll1 - PMHx: 09:52 None; ll1 - PSHx: 09:52 None; ll1 - Immunization history:: Adult Immunizations up to date. - Social history:: Smoking status: Patient denies any tobacco usage or history of. ROS: 09:50 Constitutional: Negative for fever, chills, and weight loss, Eyes: Negative for injury, jh7 pain, redness, and discharge, Neck: Negative for injury, pain, and swelling, Cardiovascular: Negative for chest pain, palpitations, and edema, Respiratory: Negative for shortness of breath, cough, wheezing, and pleuritic chest pain, Back: Negative for injury and pain, MS/Extremity: Negative for injury and deformity, Skin: Negative for injury, rash, and discoloration, Neuro: Negative for headache, weakness, numbness, tingling, and seizure. 09:50 Abdomen/GI: Positive for nausea and vomiting, Negative for abdominal pain. 09:50 All other systems are negative. Exam: 09:50 Constitutional: This is a well developed, well nourished patient who is awake, alert, jh7 and in no acute distress. ENT: Nares patent. No nasal discharge, no septal abnormalities noted. Tympanic membranes are normal and external auditory canals are clear. Oropharynx with no redness, swelling, or masses, exudates, or evidence of obstruction, uvula midline. Mucous membranes moist. Neck: Trachea midline, no thyromegaly or masses palpated, and no cervical lymphadenopathy. Supple, full range of motion without nuchal rigidity, or vertebral point tenderness. No Meningismus. Cardiovascular: Regular rate and rhythm with a normal S1 and S2. No gallops, murmurs, or rubs. Normal PMI, no JVD. No pulse deficits. Respiratory: Lungs have equal breath sounds bilaterally, clear to auscultation and percussion. No rales, rhonchi or wheezes noted. No increased work of breathing, no retractions or nasal flaring. Back: No spinal tenderness. No costovertebral tenderness. Full range of motion. Skin: Warm, dry with normal turgor. Normal color with no rashes, no lesions, and no evidence of cellulitis. MS/ Extremity: Pulses equal, no cyanosis. Neurovascular intact. Full, normal range of motion. Neuro: Awake and alert, GCS 15, oriented to person, place, time, and situation. Motor strength 5/5 in all extremities. Sensory grossly intact. Normal gait. 09:50 Abdomen/GI: Inspection: abdomen appears normal, Bowel sounds: normal, Palpation: abdomen is soft and non-tender, in all quadrants. Vital Signs: 09:53 BP 108 / 78; Pulse 140; Resp 16; Temp 97.1; Pulse Ox 98% on R/A; Height 5 ft. 6 in. ; ll1 10:33 BP 131 / 77; Pulse 114; Resp 19; Pulse Ox 99% on R/A; ld1 11:47 BP 108 / 69; Pulse 105; Resp 18; Pulse Ox 100% on R/A; ld1 MDM: 09:34 Patient medically screened. rn 11:45 Differential diagnosis: Nonspecific abd pain, viral gastroenteritis, gastroenteritis. [facility] Data reviewed: vital signs, nurses notes, lab test result(s). Consideration of Admission/Observation Escalation of care including admission/observation considered. I considered the following discharge prescriptions or medication management in the emergency department Medications were administered in the Emergency Department. See MAR. Counseling: I had a detailed discussion with the patient and/or guardian regarding the historical points, exam findings, and any diagnostic results supporting the discharge/admit diagnosis, to return to the emergency department if symptoms worsen or persist or if there are any questions or concerns that arise at home. Response to treatment: the patient's symptoms have markedly improved after treatment, Heart rate decreased after fluid administration. 06/22 09:50 Order name: Strep [facility] 06/22 09:50 Order name: Flu; Complete Time: 11: [facility] 06/22 09:50 Order name: SARS RAPID; Complete Time: 11: [facility] 06/22 09:50 Order name: BMP; Complete Time: 11: [facility] 06/22 09:50 Order name: CBC with Diff; Complete Time: 11: [facility] 06/22 09:52 Order name: Lactate w/ 2H reflex if indic.; Complete Time: 11: [facility] 06/22 10:32 Order name: Throat Culture [facility] 06/22 09:53 Order name: Heart Tones; Complete Time: 10:33 [facility] 06/22 11:40 Order name: Recheck Vital Signs; Complete Time: 11:48 [facility] Administered Medications: 10:33 Drug: NS 0.9% IV 1000 ml Route: IV; Rate: 1 bolus; Site: left antecubital; ld1 10:33 Drug: Ondansetron IVP 4 mg Route: IVP; Site: left antecubital; ld1 11:11 Drug: NS 0.9% IV 1000 ml Route: IV; Rate: 1 bolus; Site: left antecubital; ld1 Disposition: 15:40 Co-signature as Attending Physician, Naveed Sanchez MD I reviewed the patient's care rn provided by the Advanced Practice Provider and agree with the diagnosis and treatment plan. Disposition Summary: 06/22/23 11:41 Discharge Ordered Location: Home [facility] Problem: new [facility] Symptoms: have improved [facility] Condition: Stable [facility] Diagnosis - Viral gastroenteritis [facility] Followup: [facility] - With: Private Physician - When: 2 - 3 days - Reason: Recheck today's complaints Discharge Instructions: - Discharge Summary Sheet [facility] - Nausea and Vomiting, Adult [facility] - Viral Gastroenteritis, Adult [facility] Forms: - Medication Reconciliation Form [facility] - Thank You Letter [facility] - Patient Portal Instructions [facility] - Leadership Thank You Letter [facility] Prescriptions: - ondansetron 4 mg Oral Tablet,disintegrating - take 1 tablet by ORAL route every 6-8 hours As needed; 20 tablet; Refills: 0, jh7 Product Selection Permitted Signatures: [facility] Naveed [facility] MD MD rn Lewis, Lynsay, RN RN 1 Lindsey Leonardo RN RN ld1 Rosita Santiago, STEEL MELTER STEEL MELTER jh7
--- NOTE | 2023-06-22 11:42 | ER ---
Nurse's Notes [facility] Name: Georgia Denise Age: 23 yrs Sex: Female : 2000 Arrival Date: 06/22/2023 Time: 09:29 Bed 2 Private MD: Diagnosis: Viral gastroenteritis Presentation: 06/22 09:53 Chief complaint: Patient states: N/V for 2 days. 30 weeks preg. Coronavirus screen: ll1 Client denies travel out of the [place] in the last 14 days. At this time, the client does not indicate any symptoms associated with coronavirus-19. Ebola Screen: Patient denies travel to an Ebola-affected area in the 21 days before illness onset. Initial Sepsis Screen: Does the patient meet any 2 criteria? HR > 90 bpm. Yes Does the patient have a suspected source of infection? Yes: Acute abdominal pain. Risk Assessment: Do you want to hurt yourself or someone else? Patient reports no desire to harm self or others. Onset of symptoms was June 21, 2023. 09:53 Method Of Arrival: Ambulatory ll1 09:53 Acuity: KIM 2 ll1 Historical: - Allergies: 09:52 Benadryl; ll1 - PMHx: 09:52 None; ll1 - PSHx: 09:52 None; ll1 - Immunization history:: Adult Immunizations up to date. - Social history:: Smoking status: Patient denies any tobacco usage or history of. Screenin:33 [facility] ED Fall Risk Assessment (Adult) History of falling in the last 3 months, ld1 including since admission No falls in past 3 months (0 pts). Abuse screen: Denies threats or abuse. Denies injuries from another. Nutritional screening: No deficits noted. Tuberculosis screening: No symptoms or risk factors identified. Assessment: 10:33 General: Appears in no apparent distress. comfortable, Behavior is calm, cooperative, ld1 appropriate for age. Pain: Denies pain. Neuro: Level of Consciousness is awake, alert, obeys commands, Oriented to person, place, time, situation. Cardiovascular: Capillary refill < 3 seconds Patient's skin is warm and dry. Respiratory: Airway is patent Respiratory effort is even, unlabored. GI: Abdomen is round pt is 30 weeks Reports nausea. : No signs and/or symptoms were reported regarding the genitourinary system. EENT: No signs and/or symptoms were reported regarding the EENT system. Derm: No signs and/or symptoms reported regarding the dermatologic system. Musculoskeletal: No signs and/or symptoms reported regarding the musculoskeletal system. Vital Signs: 09:53 BP 108 / 78; Pulse 140; Resp 16; Temp 97.1; Pulse Ox 98% on R/A; Height 5 ft. 6 in. ; ll1 10:33 BP 131 / 77; Pulse 114; Resp 19; Pulse Ox 99% on R/A; ld1 11:47 BP 108 / 69; Pulse 105; Resp 18; Pulse Ox 100% on R/A; ld1 Vitals: 10:33 Heart Tones 152. ld1 ED Course: 09:33 Patient arrived in ED. rg4 09:34 Naveed Sanchez MD is Attending Physician. rn 09:48 Rosita Santiago FNP is PHCP. jh7 09:52 Arm band placed on Patient placed in an exam room, on a stretcher. ll1 09:54 Triage completed. ll1 10:09 Lindsey Leonardo, CHANTAL is Primary Nurse. ld1 10:10 SARS RAPID Sent. ld1 10:10 Flu Sent. ld1 10:10 Strep Sent. ld1 10:33 Patient has correct armband on for positive identification. Placed in gown. Bed in low ld1 position. Call light in reach. Side rails up X2. customer support advisor on. Pulse ox on. NIBP on. Door closed. Noise minimized. Warm blanket given. 10:33 Lactate w/ 2H reflex if indic. Sent. ld1 10:33 CBC with Diff Sent. ld1 10:33 BMP Sent. ld1 10:33 No provider procedures requiring assistance completed. Inserted saline lock: 20 gauge ld1 in left antecubital area, using aseptic technique. Blood collected. 12:33 Provided Education on: na. ko1 12:33 IV discontinued, intact, bleeding controlled, No redness/swelling at site. Pressure ko1 dressing applied. Administered Medications: 10:33 Drug: NS 0.9% IV 1000 ml Route: IV; Rate: 1 bolus; Site: left antecubital; ld1 10:33 Drug: Ondansetron IVP 4 mg Route: IVP; Site: left antecubital; ld1 11:11 Drug: NS 0.9% IV 1000 ml Route: IV; Rate: 1 bolus; Site: left antecubital; ld1 Medication: 12:33 VIS not applicable for this client. ko1 Outcome: 11:41 Discharge ordered by . rajesh 12:33 Discharged to home ambulatory, with family. ko1 12:33 Condition: improved 12:33 Discharge instructions given to patient, family, Instructed on discharge instructions, follow up and referral plans. Demonstrated understanding of instructions, follow-up care. 12:34 Prescriptions given X 1. ko1 12:35 Patient left the ED. ko1 Signatures: Naveed Sanchez MD MD rn Garcia, Rubi rg4 Jackson Neville RN RN 1 Lindsey Leonardo RN RN ld1 Rosita Santiago, MORTUARY OPERATIONS MANAGER [place] [id number] Kimmy Theodore, RN RN ko1
[2023-06-22 12:45] VITALS: TEMP 97.1
[2023-06-22 12:47] VITALS: BP 108/69; O2SAT 100
== END 2023-06-22 12:35 | disposition home or self-care (01) ==
LOC: ER 09:29
DX: O99.613 Diseases of the digestive system complicating pregnancy, third trimester (principal); A08.4 Viral intestinal infection, unspecified; Z3A.30 30 weeks gestation of pregnancy; Z20.822 Contact with and (suspected) exposure to COVID-19; Z88.8 Allergy status to other drugs, medicaments and biological substances
CPT/HCPCS: 87070; 85025; 80048; 36415; 87081; 83605; 87804 ×2; 96374; 99285; 87811; J2405; J7030 ×2